=== PATIENT | male | born 2005 | race Caucasian/White ===

== ENCOUNTER 2025-05-10 07:42 | Emergency (ER) | payer SELFPAY ==
[~2025-05-10] VITALS: Ht 165.1 cm; Wt 71.0 kg
[2025-05-10 07:54] VITALS: O2SAT 98
[2025-05-10 08:10] LABS: BASOPHILS % 0.2 % (0.0-2.0); EOSINOPHILS % 0.3 % (0.0-5.0); HEMATOCRIT. 43.1 % (42.0-52.0); HEMOGLOBIN. 14.7 g/dL (14.0-18.0); LYMPHOCYTES % 13.3 % (20.0-50.0); MEAN PLATELET VOLUME 7.1 fl (7.4-10.4); MONOCYTES % 8.4 % (2.0-8.0); NEUTROPHILS % 77.8 % (40.0-76.0); PLATELET 247 x1000/uL (130-400); RED BLOOD CELL COUNT 5.20 mill/uL (4.7-6.1); RED CELL DISTRIBUTION WIDTH 13.4 % (11.6-14.6)
[2025-05-10 08:27] LABS: CREATININE 0.9 mg/dL (0.6-1.3); UREA NITROGEN BLOOD 6 mg/dL (9-23)
[2025-05-10] MEDS ORDERED: IOHEXOL-300 100 ML BOTTLE ONE (09:09)
[2025-05-10 09:14] LABS: PROTEIN TOTAL 8.0 g/dL (6.0-8.3)
[2025-05-10 09:16] LABS: ASPARTATE AMINOTRANSFERASE 23 IU/L (<34); BILIRUBIN DIRECT 0.2 mg/dL (<=3.0); BILIRUBIN TOTAL 0.8 mg/dL (0.1-1.0)
[2025-05-10] MEDS: SODIUM CHLORIDE 0.9% 1,000 ML IV ONE (09:40)
[2025-05-10] MEDS: IBUPROFEN 600MG TABLET PO ONE (09:40)
[2025-05-10] MEDS: ACETAMINOPHEN 500MG TABLET PO ONE (09:41)
[2025-05-10] MEDS ORDERED: METRONIDAZOLE 500 MG PREMIX 100 ML IV ONE (10:00)
[2025-05-10] MEDS ORDERED: CEFTRIAXONE 1GM/50ML 50 ML IV ONE (10:00)
[2025-05-10 10:06] VITALS: BP 126/70; PULSE 119; RESP 13; TEMP 36.7; O2SAT 98
[2025-05-10] MEDS ORDERED: SKIN ADHESIVE 0.7 GM EA TOP ONE (10:11)
[2025-05-10] MEDS ORDERED: BUPIVACAINE HCL/PF 0.5% (5MG/ML) 10ML ONE (10:11)
[2025-05-10] MEDS ORDERED: FENTANYL CITRATE/PF 50MCG/ML 2ML VIAL ONE (10:45)
[2025-05-10] MEDS ORDERED: PROPOFOL 200MG/20ML VIAL IV ONE (10:45)
[2025-05-10] MEDS ORDERED: MIDAZOLAM HCL 2 MG/2 ML VIAL ONE (10:46)
[2025-05-10] MEDS ORDERED: ROCURONIUM BROMIDE 10MG/ML VIAL 5ML IV ONE ×2 (10:49→12:18)
[2025-05-10] MEDS ORDERED: ACETAMINOPHEN 1000MG/100ML 100 ML IV ONE (11:30)
[2025-05-10] MEDS ORDERED: FAMOTIDINE 20MG/2ML VIAL IV ONE (11:31)
[2025-05-10] MEDS ORDERED: HYDROMORPHONE HCL/PF 1MG/ML INJ ONE (11:52)
[2025-05-10] MEDS ORDERED: DEXAMETHASONE 4MG/ML 1ML VIAL ONE (12:00)
[2025-05-10] MEDS ORDERED: KETOROLAC 30MG/ML VIAL ONE (12:00)
[2025-05-10] MEDS ORDERED: ONDANSETRON HCL 4MG/2ML INJ ONE (12:00)
[2025-05-10] MEDS ORDERED: HYDROMORPHONE HCL/PF 1MG/ML INJ IV PRN (12:15)
[2025-05-10] MEDS ORDERED: ONDANSETRON HCL 4MG/2ML INJ IV PRN (12:15)
== END 2025-05-10 15:00 | disposition home or self-care (01) ==
LOC: EDBD 07:42 → ER 07:42 → EDBEDREQ 10:16 → EDBEDREQTM 10:16 → ER 15:00 → CMPBEDREQ 05-11 08:00
DX: K35.80 Unspecified acute appendicitis (principal); Z79.899 Other long term (current) drug therapy
CPT/HCPCS: 44970; 80076; 80048; 83690; 83735; 85025; 36415; 88304; 74177; 99291; J3010; Q9967; J0665; J0696; J1100; J1308; J1885; J3490 ×2; J2250; J2405; J2704; J1171; J7030 ×2; A4217; Z7610 ×30; A4615; J0131